=== PATIENT | male | born 1980 | race Caucasian/White ===

== ENCOUNTER 2019-10-11 13:08 | Emergency (ER) | payer SELFPAY ==
[~2019-10-11] VITALS: Ht 188 cm; Wt 108.9 kg
[2019-10-11 13:15] VITALS: BP 121/51
--- NOTE | 2019-10-11 13:15 | NUR ---
ED Nurse Note: Pt brought in by [employer] for altered mental status. Pt is put on 5150 hold. Placed in psych gown, all belongings put in locker, safety measures in place. Pt is constantly yelling and stating " I am not God! I am not Nugent!" Pt was given Versed in ambulance.
--- NOTE | 2019-10-11 13:30 | NUR ---
ED Nurse Note: Belongings in locker #1.
[2019-10-11 13:44] LABS: BASOPHILS % (AUTO) 1.1 % (0.0-2.0); EOSINOPHILS % (AUTO) 0.7 % (0.0-3.0); HEMATOCRIT 44.8 % (42.0-52.0); HEMOGLOBIN 15.5 G/DL (14.2-18.0); LYMPHOCYTES % (AUTO) 14.9 % (20.0-45.0); MEAN CORPUSCULAR VOLUME 86 FL (80-99); NEUTROPHILS % (AUTO) 76.4 % (45.0-75.0); PLATELET COUNT 321 K/UL (150-450); RED CELL DISTRIBUTION WIDTH 11.8 % (11.6-14.8); WHITE BLOOD COUNT 7.8 K/UL (4.8-10.8)
[2019-10-11 13:54] LABS: ANION GAP 12 mmol/L (5-15); BLOOD UREA NITROGEN 20 mg/dL (7-18); CALCIUM 9.6 MG/DL (8.5-10.1); CARBON DIOXIDE 23 MMOL/L (21-32); CHLORIDE 105 MMOL/L (98-107); CREATININE 1.1 MG/DL (0.55-1.30); SODIUM 140 MMOL/L (136-145)
[2019-10-11 13:59] LABS: ALANINE AMINOTRANSFERASE 67 U/L (12-78); ALBUMIN 4.2 G/DL (3.4-5.0); ALBUMIN/GLOBULIN RATIO 1.4 (1.0-2.7); ALKALINE PHOSPHATASE 69 U/L (46-116); ASPARTATE AMINO TRANSFERASE 44 U/L (15-37); BILIRUBIN,TOTAL 0.3 MG/DL (0.2-1.0)
[2019-10-11] MEDS ORDERED: Haloperidol 5mg/ml Inj IM ONE (14:00)
[2019-10-11] MEDS ORDERED: DiphenhydrAMINE 50mg/ml Inj IVP ONE (14:00)
--- NOTE | 2019-10-11 14:57 | Emergency Room Report ---
History of Present Illness General Chief Complaint: Behavioral Complaint Source: EMS (Mirian Lucas) Present Illness HPI 39-year-old male presents to the emergency department brought by ambulance for agitation and having severe responses to internal stimuli. Patient was found outside on the street with abnormal behavior. PD reports that the patient was not demonstrating violence or aggression however he was somewhat passive- aggressive. He is currently on a legal 5150 hold placed by [employer]. Patient unable to answer questions and is rambling/talking in sentences that are non- sensible. HPI and ROS limited due to pt. inability to focus/follow commands. Pt. is alert. he was given 5 of Versed by paramedics [employer]. (Mirian Lucas) Allergies: Coded Allergies: No Known Allergies (Unverified , 10/12/19) COVID-19 Screening Contact w/high risk pt: No Recent Travel to affected area: No Experienced COVID-19 symptoms?: No (Mirian Lucas) Patient History Limited by: other - Pt. in ability to follow commands/ poor pt. cooperation Past Surgical History: unable to obtain Pertinent Family History: unable to obtain Reviewed Nursing Documentation: PMH: Agreed; PSxH: Agreed (Mirian Lucas) Nursing Documentation-PMH Past Medical History: Deferred (Mirian Lucas) Review of Systems All Other Systems: limited - Due to pt. inability to follow commands/ poor cooperation (Mirian Lucas) Physical Exam Vital Signs Date Time Temp Pulse Resp B/P (MAP) Pulse Ox O2 Delivery O2 Flow Rate FiO2 10/11/19 12:53 120 18 117/48 (71) 95 Room Air Sp02 EP Interpretation: reviewed, normal General Appearance: no apparent distress, alert, GCS 15, non-toxic Head: normocephalic, atraumatic Eyes: bilateral eye normal inspection, bilateral eye PERRL ENT: hearing grossly normal, normal voice Neck: full range of motion Respiratory: lungs clear, normal breath sounds, no respiratory distress, no accessory muscle use, no wheezing, speaking full sentences Cardiovascular #1: no edema, normal capillary refill, tachycardia Gastrointestinal: normal bowel sounds, non tender, soft, non-distended, no guarding Musculoskeletal: back normal, normal range of motion, gait/station normal, non- tender Neurologic: alert, motor strength/tone normal, sensory intact, responsive, speech normal, grossly normal Psychiatric: other - hyperactive, frequently responding to internal stimuli, exhibits paranoia. poor cooperation difficulty focusing and answering questions. Skin: normal color, normal inspection (Mirian Lucas) Medical Decision Making PA Attestation Dr. Alvarado is my supervising Physician whom patient management has been discussed with. (Mirian Lucas) Diagnostic Impression: Primary Impression: Behavioral disorder ER Course 39-year-old male presents to the emergency department brought by ambulance for agitation and having severe responses to internal stimuli. Patient was found outside on the street with abnormal behavior. PD reports that the patient was not demonstrating violence or aggression however he was somewhat passive- aggressive. He is currently on a legal 5150 hold placed by [employer]. Patient unable to answer questions and is rambling/talking in sentences that are non- sensible. HPI and ROS limited due to pt. inability to focus/follow commands. Pt. is alert. he was given 5 of Versed by paramedics [employer]. Pt is hyperactive, and has a very anxious and restless affect. Pt. repeatedly responding to internal stimuli and yelling. Ddx considered but are not limited to OD, SI/HI, psychosis, UTI, intoxication Vital signs: Pt. is tachycardic otherwise remaining VS are WNL, pt. is afebrile H&PE are most consistent with behavioral/mental health issue ORDERS: -CBC, CMP: WNL -UA: negative for infection see results attached. -UDS: Positive for Benzo's -Serum ETOH: no acute intoxication. -Salicylates and Acetaminophen - no acute intoxication. ED INTERVENTIONS: - 5mg Haldol IM -Benadryl 25mg IV After above interventions and pt. being allowed to sleep/rest, pt. was awake and able to hold conversations. He reports being in psychiatric hospitalization twice in the past. He reports hx of ADHD and takes Adderall and modafinil. He reports in the past he took too much modafinil which caused him to have visual hallucinations. Patient states that he took modafinil today as well but does not remember what happened he states he just remembered that he needed to escape from his house and he has been having insomnia. Patient reports that he is prescribed his ADHD medications because he is currently studying and going through law school which requires him to have more concentration. Pt. unable to estimate how many modafinil he took today. Denies hallucinations at this time. DISPOSITION: Pt. is medically cleared for psychiatric placement on 5150 hold. Labs Test 10/11/19 13:23 10/11/19 13:50 White Blood Count 7.8 K/UL (4.8-10.8) Red Blood Count 5.20 M/UL (4.70-6.10) Hemoglobin 15.5 G/DL (14.2-18.0) Hematocrit 44.8 % (42.0-52.0) Mean Corpuscular Volume 86 FL (80-99) Mean Corpuscular Hemoglobin 29.8 PG (27.0-31.0) Mean Corpuscular Hemoglobin Concent 34.5 G/DL (32.0-36.0) Red Cell Distribution Width 11.8 % (11.6-14.8) Platelet Count 321 K/UL (150-450) Mean Platelet Volume 5.4 FL (6.5-10.1) Neutrophils (%) (Auto) 76.4 % (45.0-75.0) Lymphocytes (%) (Auto) 14.9 % (20.0-45.0) Monocytes (%) (Auto) 7.0 % (1.0-10.0) Eosinophils (%) (Auto) 0.7 % (0.0-3.0) Basophils (%) (Auto) 1.1 % (0.0-2.0) Sodium Level 140 MMOL/L (136-145) Potassium Level 4.0 MMOL/L (3.5-5.1) Chloride Level 105 MMOL/L (98-107) Carbon Dioxide Level 23 MMOL/L (21-32) Anion Gap 12 mmol/L (5-15) Blood Urea Nitrogen 20 mg/dL (7-18) Creatinine 1.1 MG/DL (0.55-1.30) Estimat Glomerular Filtration Rate > 60 mL/min (>60) Glucose Level 126 MG/DL (74-106) Calcium Level 9.6 MG/DL (8.5-10.1) Total Bilirubin 0.3 MG/DL (0.2-1.0) Aspartate Amino Transf (AST/SGOT) 44 U/L (15-37) Alanine Aminotransferase (ALT/SGPT) 67 U/L (12-78) Alkaline Phosphatase 69 U/L (46-116) Total Protein 7.3 G/DL (6.4-8.2) Albumin 4.2 G/DL (3.4-5.0) Globulin 3.1 g/dL Albumin/Globulin Ratio 1.4 (1.0-2.7) Salicylates Level 0.8 ug/mL (2.8-20) Acetaminophen Level < 2 MCG/ML (10-30) Serum Alcohol < 3 mg/dL Urine Opiates Screen Negative (NEGATIVE) Urine Barbiturates Screen Negative (NEGATIVE) Phencyclidine (PCP) Screen Negative (NEGATIVE) Urine Amphetamines Screen Negative (NEGATIVE) Urine Benzodiazepines Screen Positive (NEGATIVE) Urine Cocaine Screen Negative (NEGATIVE) Urine Marijuana (THC) Screen Negative (NEGATIVE) (Mirian Lucas) ER Course Patient placed on 5150 hold by police. While arranging transfer to psychiatric facility patient did refuse transfer. We then called our psychiatrist who did come and evaluate the patient. She did break the hold. She did recommend Haldol 100 mg long-acting IM which was given. I did speak with the patient. He was not suicidal or homicidal. He was alert and oriented. He was then discharged with continued outpatient follow-up. He was given return precautions. (Jamie Josue M.D.) Last Vital Signs Date Time Temp Pulse Resp B/P (MAP) Pulse Ox O2 Delivery O2 Flow Rate FiO2 10/11/19 12:53 120 18 117/48 (71) 95 Room Air (Mirian Lucas) Disposition: HOME, SELF-CARE Condition: Stable Referrals: NOT CHOSEN IPA/,REFERRING (PCP) Mirian Lucas Oct 11, 2019 14:57 Jamie Josue M.D. Oct 12, 2019 17:26
--- NOTE | 2019-10-11 15:20 | NUR ---
ED Nurse Note: Pt is alert and rambling. Denies SI. Safety measures used.
[2019-10-11 15:35] VITALS: BP 125/57
--- NOTE | 2019-10-11 17:00 | NUR ---
ED Nurse Note: Safety measures in place. Pt asking for water. Sitting in bed, calm.
[2019-10-11 17:30] VITALS: BP 128/59
--- NOTE | 2019-10-11 19:00 | NUR ---
ED Nurse Note: Pt is alert and calm, thoughts disoriented slightly. Pt knows name and where he is.
--- NOTE | 2019-10-11 19:55 | NUR ---
ED Nurse Note: Pt awake, offered water and blankets as well as toiletting. Will contintue to monitor
--- NOTE | 2019-10-11 22:00 | NUR ---
ED Nurse Note: pT RESTING IN BED WITH EYES CLOSED, PT INTERMITTENTLY ASKS FOR WATER. nO SIGNS OF DISTRESS, WILL CONTINUE TO MONITOR
--- NOTE | 2019-10-12 | NUR ---
ED Nurse Note: pT AMBULATED TO BATHROOM, ASSISTED PT BACK TO ROOM, OFFERED FOOD, PT DECLINED AT THIS TIME
[2019-10-12 01:00] VITALS: BP 124/61
--- NOTE | 2019-10-12 02:00 | NUR ---
ED Nurse Note: pT RESTING IN BED WITH EYES CLOSED, NO SIGNS OF DISTRESS, WILL CONTINUE TO MONITOR
[2019-10-12 03:30] VITALS: BP 134/68
--- NOTE | 2019-10-12 05:00 | NUR ---
ED Nurse Note: Pt resting in bed with eyes closed, breakfast tray ordered, pt offered water and toiletting. Will continue to monitor
[2019-10-12 07:00] VITALS: BP 130/80
--- NOTE | 2019-10-12 07:00 | NUR ---
Patient is awake alert oriented x four denies any complaints of pain as patient he dont know why he is here and wants to be left alone dont want to any answer
--- NOTE | 2019-10-12 12:00 | NUR ---
had lunch ate good ambulated to bathroom and back to bed
[2019-10-12 12:30] VITALS: BP 126/70
[2019-10-12] MEDS ORDERED: ADDERAL20 MG ORAL (13:20)
--- NOTE | 2019-10-12 13:22 | NUR ---
per patient he is not suicidal or homocidal no hallucination or delusion . he wants me to call [facility] to get him some help
--- NOTE | 2019-10-12 14:57 | NUR ---
REPORT GIVEN TO TAYLOR PATIENT IS TO BE TRANSFERD TO [facility] BY [facility]
[2019-10-12] MEDS ORDERED: Haloperidol Decanoate (Long Acting) 50mg Inj IM ONE (15:45)
[2019-10-12 16:00] VITALS: BP 125/71
--- NOTE | 2019-10-12 16:00 | NUR ---
ED Nurse Note: received patient from joan rn. patient resting in bed with no acute distress. ao4. nad. vss. denies auditory or visual hallucinations. patient presents with linear thought process. patient states he wants to go home. per ermd evaluation, pt cleared for discharge. patient aware of pending dc; waiting on dc papers.
[2019-10-12 16:15] VITALS: BP 125/71
--- NOTE | 2019-10-12 16:15 | NUR ---
ER DISCHARGE NOTE: Patient is cleared to be discharged per ERMD, pt is aox4, on room air, with stable vital signs. pt was given dc and prescription instructions, pt was able to verbalize understanding, pt id band and iv site removed without complications. pt is able to ambulate with steady gait. pt took all belongings.
== END 2019-10-12 16:15 | disposition home or self-care (01) ==
LOC: EDBD 13:08 → EMR 14:47
DX: F91.9 Conduct disorder, unspecified (principal); R00.0 Tachycardia, unspecified
CPT/HCPCS: 36415; 80053; 80307; 85025; 96361; 96372; 96374; 99285; G0480; J1200; J1630; J1631; J7030